=== PATIENT | female | born 1990 | race American Indian/Alaskan Native ===

== ENCOUNTER 2018-05-20 10:12 | Emergency (ER) | payer OTHER ==
[2018-05-20] MEDS ORDERED: BENADRYL IV ONE (11:59)
[2018-05-20] MEDS ORDERED: NACL 0.9% 1000 ML 1,000 ML IV ONE (11:59)
[2018-05-20] MEDS ORDERED: ZOFRAN IV ONE (11:59)
[2018-05-20] MEDS ORDERED: TYLENOL PO ONE (11:59)
--- NOTE | 2018-05-20 12:02 | Emergency Department Report ---
ED Headache HPI - General Chief Complaint: Headache Stated Complaint: NAUSEA/HEADACHE/VOMITING Time Seen by Provider: 05/20/18 11:59 - History of Present Illness Initial Comments: Patient reports gradual onset of burning/tingling headache that started two days ago with nausea and vomiting. She reports this headache is different from previous headaches in the past. She has tried OTC Excedrin and Ibuprofen, however to no avail. She denies head trauma, closed spaces, sick contact, dizziness, nasal drainage, thunder clap, neck stiffness or fever Timing/Duration: constant Quality: severe, other (burning and tingling) Recent Head Trauma: no recent headache/trauma, occasional headaches Modifying Factors: improves with: cold therapy, rest. worse with: movement Associated Symptoms: nausea/vomiting. denies: confusion, fatigue, facial pain, fever/chills, flushing, loss of consciousness, nasal congestion, nasal drainage , numbness in legs/feet, rash, seizures, sinus infection, stiff neck, vision changes, weakness Allergies/Adverse Reactions: Allergies No Known Allergies Allergy (Verified 05/20/18 10:35) Home Medications: Ambulatory Orders Ranitidine HCl [Zantac] 300 mg PO QDAY #30 tablet 04/24/14 traMADol [Ultram 50 MG tab] 50 mg PO Q6HR PRN #14 tablet 04/24/14 Butalb/Acetamin/Caff 50-325-40 [Fioricet] 1 each PO Q4H PRN #20 tablet 05/20/18 Ondansetron [Zofran Odt] 4 mg PO Q6HRT #8 tab.rapdis 05/20/18 ED Review of Systems ROS: Stated complaint: NAUSEA/HEADACHE/VOMITING Other details as noted in HPI Constitutional: denies: chills, fever Eyes: denies: eye pain, eye discharge, vision change ENT: denies: ear pain, throat pain Respiratory: denies: cough, orthopnea, shortness of breath, SOB with exertion, SOB at rest, stridor, wheezing Cardiovascular: denies: chest pain, palpitations Endocrine: no symptoms reported Gastrointestinal: nausea, vomiting. denies: abdominal pain, diarrhea, constipation, hematemesis, melena Genitourinary: denies: urgency, dysuria, discharge Musculoskeletal: denies: back pain, joint swelling, arthralgia Skin: denies: rash, lesions Neurological: headache. denies: weakness, paresthesias Psychiatric: denies: anxiety, depression Hematological/Lymphatic: denies: easy bleeding, easy bruising ED Past Medical Hx - Past Medical History Previous Medical History?: No - Surgical History Past Surgical History?: No - Social History Smoking Status: Never Smoker Substance Use Type: None - Medications Home Medications: Home Medications Medication Instructions Recorded Confirmed Last Taken Type Ranitidine HCl [Zantac] 300 mg PO QDAY #30 tablet 04/24/14 Unknown Rx traMADol [Ultram 50 MG tab] 50 mg PO Q6HR PRN #14 tablet 04/24/14 Unknown Rx Butalb/Acetamin/Caff 50-325-40 1 each PO Q4H PRN #20 tablet 05/20/18 Unknown Rx [Fioricet] Ondansetron [Zofran Odt] 4 mg PO Q6HRT #8 tab.rapdis 05/20/18 Unknown Rx ED Physical Exam - General Limitations: No Limitations ED Course Vital Signs 05/20/18 10:35 Temperature 98.4 F Pulse Rate 67 Respiratory 18 Rate Blood Pressure 116/64 O2 Sat by Pulse 97 Oximetry - Reevaluation(s) Reevaluation #1: 05/20/18 12:20 antiemetic, NS, Benadryl, acetaminophen, laboratory and radiology studies ordered ED Medical Decision Making - Radiology Data Radiology results: image reviewed HISTORY: headache TECHNIQUE: Axial noncontrast CT images of the brain were performed Total exam DLP 920.48 mGy-cm Comparison: None FINDINGS: Normal remy-white differentiation without midline shift or mass effect. No acute extra-axial fluid collection or intraparenchymal blood products. Ventricles and cisterns have normal size and configuration. Imaged posterior fossa is unremarkable. Conjugate gaze. Imaged paranasal sinuses are clear. No displaced calvarial fracture. IMPRESSION: No acute transcortical infarct, bleed, or mass identified. Clear imaged paranasal sinuses. - Medical Decision Making During the course of ED, antiemetic, NS, Benadryl, acetaminophen, laboratory and radiology studies ordered. Radiology studies revealed No acute transcortical infarct, bleed, or mass identified. Clear imaged paranasal sinuses. Patient reports symptomatic relief from supportive therapy given in the ED. She was sent home with prescriptions for Fiorcet and Zofran, instructed to follow up with the selective referral given at discharge, she verbalized understanding - Differential Diagnosis Headache, Nausea/Vomting, SAH Critical care attestation.: If time is entered above; I have spent that time in minutes in the direct care of this critically ill patient, excluding procedure time. ED Disposition Clinical Impression: Headache Qualifiers: Headache type: unspecified Headache chronicity pattern: acute headache Intractability: not intractable Qualified Code(s): R51 - Headache Nausea and vomiting Qualifiers: Vomiting type: unspecified Vomiting Intractability: non-intractable Qualified Code(s): R11.2 - Nausea with vomiting, unspecified Disposition: DC- TO HOME OR SELFCARE Is pt being admited?: No Does the pt Need Aspirin: No Condition: Stable Instructions: Acute Headache (ED), Acute Nausea and Vomiting (ED) Additional Instructions: Take medication as directed. Follow up with the selective referral given at discharge. Return back to the ED for worsening symptoms or concerns Prescriptions: Butalb/Acetamin/Caff 50-325-40 [Fioricet] 1 each PO Q4H PRN #20 tablet PRN Reason: Headache Ondansetron [Zofran Odt] 4 mg PO Q6HRT #8 tab.rapdis Referrals: PRIMARY CAREMD [Primary Care Provider] - 3-5 Days PORTIA FRASER MD [Staff Physician] - 3-5 Days MICAH AMOR MD [Staff] - 3-5 Days Forms: Work/School Release Form(ED) Time of Disposition: 14:08
[2018-05-20 12:18] LABS: Bilirubin,Urine NEG (Negative); Blood,Urine SM (Negative); Color,Urine Yellow (Yellow); Mucus,Urine FEW /HPF; Protein,Urine <15 mg/dL mg/dL (Negative); Urobilinogen,Urine < 2.0 mg/dL (<2.0)
--- NOTE | 2018-05-20 13:50 | Cat Scan Report ---
FINAL REPORT EXAM: CT HEAD/BRAIN WO CON HISTORY: headache TECHNIQUE: Axial noncontrast CT images of the brain were performed Total exam DLP 920.48 mGy-cm Comparison: None FINDINGS: Normal remy-white differentiation without midline shift or mass effect. No acute extra-axial fluid collection or intraparenchymal blood products. Ventricles and cisterns have normal size and configuration. Imaged posterior fossa is unremarkable. Conjugate gaze. Imaged paranasal sinuses are clear. No displaced calvarial fracture. IMPRESSION: No acute transcortical infarct, bleed, or mass identified. Clear imaged paranasal sinuses.
[2018-05-20 14:27] VITALS: BP 106/70
== END 2018-05-20 14:25 | disposition home or self-care (01) ==
LOC: ED 10:12
DX: R51 Headache (principal); R11.2 Nausea with vomiting, unspecified
CPT/HCPCS: 70450; 81001; 96361; 96374; 96375; 99284; J1200; J2405; J7030